=== PATIENT | female | born 1975 | race Caucasian/White ===

== ENCOUNTER 2018-07-30 08:15 | Outpatient (CLI) | payer BC, SELFPAY ==
[2018-07-30 08:50] VITALS: BP 158/100; PULSE 68; RESP 20; TEMP 36.9; O2SAT 98
[2018-07-30 09:40] VITALS: BP 156/97; PULSE 80; RESP 20; TEMP 36.9
== END 2018-07-30 09:55 | disposition home or self-care (01) ==
PROVIDERS: Visit Provider Internal Medicine Gastroenterology
DX: D50.9 Iron deficiency anemia, unspecified (principal)
CPT/HCPCS: 96365; J1439

== ENCOUNTER 2018-08-06 08:19 | Outpatient (CLI) | payer BC, SELFPAY ==
[2018-08-06 09:00] VITALS: BP 140/92; PULSE 92; RESP 20; TEMP 36.9; O2SAT 95
[2018-08-06 10:23] VITALS: BP 124/94; PULSE 68; RESP 20; TEMP 36.9; O2SAT 95
== END 2018-08-06 09:55 | disposition home or self-care (01) ==
LOC: INF 08:19
PROVIDERS: Visit Provider Internal Medicine Gastroenterology
DX: D50.9 Iron deficiency anemia, unspecified (principal)
CPT/HCPCS: 96365; J1439

== ENCOUNTER → 2019-11-23 07:58 | Outpatient (CLI) | payer OTHER, SELFPAY ==
[2019-11-24 16:33] LABS: Covid-19 Nasal PCR Sendout UK Not Detected
== END ==
PROVIDERS: Visit Provider Internal Medicine Gastroenterology
DX: U07.1 COVID-19 (principal)
CPT/HCPCS: U0003